=== PATIENT | male | born 1970 | race Hispanic/Latino ===

== ENCOUNTER 2018-01-06 23:16 | Emergency (ER) | payer OTHER, BC ==
[2018-01-06 23:48] VITALS: RESP 19
--- NOTE | 2018-01-06 23:58 | ED PDOC ---
Arrival/HPI <Kana Maddox - Last Filed: 01/07/18 00:39> - General Historian: Patient - History of Present Illness Time/Duration: 1-3 hours Symptom Onset: Sudden Symptom Course: Unchanged Quality: Aching Severity Level: 3 Activities at Onset: Other (shopping) <Maciel Roger - Last Filed: 01/07/18 00:53> - General Chief Complaint: Lower Extremity Problem/Injury Time Seen by Provider: 01/06/18 23:29 - History of Present Illness Narrative History of Present Illness (Text): 01/06/18 23:54 Patient is a 47 yo M with no significant PMH presents to Emergency department after accident a [employer]. Patient states that he was towards the bottom of an inclined moving walkway when a network pricing consultant with a full cart lost control of their cart near the top of the moving walkway struck his back. Patient states that his left hand and right ankle got caught on the cart and eventually threw him forward and landed on his right knee. Patient admits to pain in his mid-back, left 5th finger, right knee, and right ankle. Patient states that he was able to bear weight and walk after the injury and in the Emergency department, albeit with a limp. Patient denies any head trauma, LOC, dizziness, headache, chest pain, shortness of breath, abdominal pain, fever, or chills. PMD: Saunders (Le,Christophe) Past Medical History - Provider Review Nursing Documentation Reviewed: Yes - Infectious Disease Hx of Infectious Diseases: None - Psychiatric Hx Substance Use: No - Anesthesia Hx Anesthesia: No Hx Anesthesia Reactions: No Hx Malignant Hyperthermia: No <Maciel Roger - Last Filed: 01/07/18 00:53> Family/Social History - Physician Review Nursing Documentation Reviewed: Yes Family/Social History: No Known Family HX Smoking Status: Never Smoked Hx Alcohol Use: No Hx Substance Use: No <Maciel Roger - Last Filed: 01/07/18 00:53> Allergies/Home Meds <Kana Maddox - Last Filed: 01/07/18 00:39> <Maciel Roger - Last Filed: 01/07/18 00:53> Allergies/Adverse Reactions: Allergies shrimp Adverse Reaction (Verified 01/06/18 23:50) ANGIOEDEMA Home Medications: Home Meds Medication Instructions Recorded Confirmed No Known Home Med 01/06/18 01/06/18 Review of Systems - Physician Review All systems were reviewed & negative as marked: Yes (12 point ROS reviewed and is negative other than what is stated in HPI.) - Review of Systems Constitutional: absent: Fevers Respiratory: absent: SOB Cardiovascular: absent: Chest Pain <Kana Maddox - Last Filed: 01/07/18 00:39> - Physician Review All systems were reviewed & negative as marked: Yes (12 poitn ROS reviewed and is negative other than what is stated in HPI.) <Maciel Roger - Last Filed: 01/07/18 00:53> Physical Exam Vital Signs Reviewed: Yes Temperature: Afebrile Blood Pressure: Normal Pulse: Regular Respiratory Rate: Normal Appearance: Positive for: Non-Toxic Pain Distress: Mild Mental Status: Positive for: Alert and Oriented X 3 - Systems Exam Head: Present: Atraumatic, Normocephalic Pupils: Present: PERRL Extroacular Muscles: Present: EOMI Conjunctiva: Present: Normal Mouth: Present: Moist Mucous Membranes Pharnyx: Present: Normal Neck: Present: Normal Range of Motion Respiratory/Chest: Present: Clear to Auscultation. No: Wheezes, Rales, Rhonchi Cardiovascular: Present: Regular Rate and Rhythm, Normal S1, S2. No: Murmurs, Rub, Gallop Abdomen: No: Tenderness, Distention, Guarding Back: Present: Paraspinal Tenderness (mild, thoracic) Upper Extremity: Present: Other (blister on medial, distal left hypothenar eminence; no pain with left fingers/hand AROM/PROM) Lower Extremity: Present: NORMAL PULSES, Neurovascularly Intact, Capillary Refill < 2 s, Other (Right knee: mild swelling inferior to patella, patella tracks normally, negative grind test, negative anterior/posterior drawer, negative varus/valgus strain, negative Mary's; Right Ankle: point tenderness on medial malleolus, negative anterior drawer test, negative inversion/eversion strain; Antagic Gait). No: Edema, CALF TENDERNESS, Cyanosis Neurological: Present: GCS=15, CN II-XII Intact, Speech Normal, Motor Func Grossly Intact Skin: Present: Warm, Dry, Normal Color. No: Rashes Psychiatric: Present: Alert, Oriented x 3, Normal Insight, Normal Concentration <Maciel Roger - Last Filed: 01/07/18 00:53> Vital Signs Temp Pulse Resp BP Pulse Ox 01/07/18 00:48 138/91 H 01/07/18 00:05 149/92 H 01/06/18 23:39 98.8 F 72 19 163/100 H 96 Medical Decision Making - RAD Interpretation Bell Person: ED Physician <Kana Maddox - Last Filed: 01/07/18 00:39> <Maciel Roger - Last Filed: 01/07/18 00:53> ED Course and Treatment: 01/07/18 Patient Seen With Resident: In agreement with resident note which contains more detail about the patient. Patient was seen and evaluated with resident. Came up with plan and treatment together. X-ray of right knee and ankle show no acute processes. Interpreted by me. (Kana Maddox) 01/07/18 00:04 47 yo M presents to emergency department with left hand pain, right knee, and right ankle pain s/p accident while shopping. Plan: - Right knee xray per [place] Knee Rule (Tenderness of patella) - Right ankle xray per [place] Ankle Rule (Medial malleolar pain) - Reassess and disposition 01/07/18 00:49 Results of xray were discussed with patient and that the diagnosis is likely right knee and ankle sprain. Patient was advised to rest, ice, compress, and elevate right knee and ankle. Patient given LIANA bandage and advised to follow up with PMD. Patient medically stable for discharge. (Maciel Roger) - RAD Interpretation Radiology Orders: 01/06/18 23:51 ANKLE RIGHT 3 VIEWS ROUTINE [RAD] Stat KNEE W PATELLA RIGHT 3 VIEW [RAD] Stat Disposition/Present on Arrival <Kana Maddox - Last Filed: 01/07/18 00:39> - Present on Arrival Any Indicators Present on Arrival: No History of DVT/PE: No History of Uncontrolled Diabetes: No Urinary Catheter: No History of Decub. Ulcer: No History Surgical Site Infection Following: None - Disposition Have Diagnosis and Disposition been Completed?: Yes Disposition Time: 00:53 Patient Plan: Discharge <Maciel Roger - Last Filed: 06/17/18 00:53> - Disposition Diagnosis: Right knee sprain, Right ankle sprain Disposition: HOME/ ROUTINE Condition: STABLE Discharge Instructions (ExitCare): Ankle Sprain (DC), Knee Sprain (DC) Additional Instructions: 1. Follow up with PMD on Monday 2. Use Aleve as needed for pain 1-2 tabs every 8 hrs 3. Use ice on knee and ankle with towel in-between for no more than 15 minutes at a time for up to 48 hrs 4. Use LIANA bandage for right ankle swelling 5. Rest as much as possible 6. Elevate right leg when possible 7. Return to Emergency department if symptoms worsen MARCELLA SALAZAR, thank you for letting us take care of you today. Your provider was Kana Maddox MD and you were treated for body injury ( knee , finger , arm). The emergency medical care you received today was directed at your acute symptoms. If you were prescribed any medication, please fill it and take as directed. It may take several days for your symptoms to resolve. Return to the Emergency Department if your symptoms worsen, do not improve, or if you have any other problems. Please contact your doctor or call one of the physicians/clinics you have been referred to that are listed on the Patient Visit Information form that is included in your discharge packet. Bring any paperwork you were given at discharge with you along with any medications you are taking to your follow up visit. Our treatment cannot replace ongoing medical care by a primary care provider outside of the emergency department. Thank you for allowing the [facility] team to be part of your care today. Forms: [employer] (Italian), WORK NOTE
[2018-01-07 01:32] VITALS: BP 134/89; PULSE 79; TEMP 98.7; O2SAT 99
--- NOTE | 2018-01-07 07:28 | RAD ---
PROCEDURE: Right Ankle Radiographs. HISTORY: fall COMPARISON: None FINDINGS: BONES: Normal. No fracture. JOINTS: Normal. No osteoarthritis. Ankle mortise maintained. Talar dome intact SOFT TISSUES: Normal. OTHER FINDINGS: None. IMPRESSION: Normal right ankle radiographs.
--- NOTE | 2018-01-07 07:29 | RAD ---
PROCEDURE: Right Knee Radiographs. HISTORY: fall COMPARISON: None. FINDINGS: BONES: Normal. No fracture. JOINTS: Normal. No osteoarthritis. JOINT EFFUSION: None. OTHER FINDINGS: None. IMPRESSION: Normal radiographs of the right knee.
== END 2018-01-07 01:28 | disposition home or self-care (01) ==
LOC: ED 23:16
DX: S93.401A Sprain of unspecified ligament of right ankle, initial encounter (principal); S83.91XA Sprain of unspecified site of right knee, initial encounter; W18.09XA Striking against other object with subsequent fall, initial encounter; Y92.512 Supermarket, store or market as the place of occurrence of the external cause